=== PATIENT | male | born 1945 | race Caucasian/White ===

== ENCOUNTER 2017-04-20 13:50 | Inpatient (IN) ==
[2017-04-20] MEDS ORDERED: KETOROLAC 30 MG/1 ML VIAL IV STA (14:20)
[2017-04-20] MEDS ORDERED: KETOROLAC 30 MG/1 ML VIAL ONE (14:32)
--- NOTE | 2017-04-20 14:34 | Emergency Department Note ---
Conor Ahmadi Manpreet, am scribing for, and in the presence of, Nick Mann MD 14: 22. Mackenzie Ahmadi James D, MD, personally performed the services described in this documentation, ascribed by Aries Perdomo in my presence, and it is both accurate and complete 433 . Arrival - Arrival Chief Complaint: Shortness of Breath Stated Complaint: sob, painful in chest ED Nursing Triage Note: pt to triage via wc with c/o having sob with painful inspirations. pt states onset tuesday. pt states he has had a cough. pt states hurts worse with movement. Mode of Arrival: Wheelchair Limitations: No Limitations Source: Patient - History of Present Illness HPI Narrative: Pt is a 71 y/o male who presents to the ED with CC of left sided CP and SOB. Pt states the CP started 04/18/17 and the SOB started on 04/19/17. Pt states he has been coughing a little but his CP worsens with the cough. Pt reports of smoking 1 pack of cigarettes a week and drinking 1 6-pack of beer per week. Pt denies any fever, chills, or N/V/D. No other pains/complaints reported to the ED. Onset (ago): day(s) (04/18/17) Consistency: constant Severity: moderate Allergies/Adverse Reactions: Allergies Allergy/AdvReac Type Severity Reaction Status Date / Time No Known Allergies Allergy Unverified 04/20/17 14:02 Home Medications: Home Medications Medication Instructions Recorded Confirmed Type Melatonin 3 mg PO BEDTIME 04/20/17 04/20/17 History Mirtazapine [Remeron] 7.5 mg PO BEDTIME 04/20/17 04/20/17 History Omeprazole 40 mg PO BEDTIME 04/20/17 04/20/17 History Sertraline [Zoloft] 100 mg PO BEDTIME 04/20/17 04/20/17 History amLODIPine [Norvasc] 10 mg PO BEDTIME 04/20/17 04/20/17 History Review of System - Review of System 12 point system: reviewed and no additional remarkable complaints except as stated - Review of System Constitutional: Absent: chills, diaphoresis, fever Respiratory: Present: respiratory distress. Absent: wheezing Cardiovascular: Present: chest pain Gastrointestinal: Absent: abdominal pain, nausea, vomiting, diarrhea Genitourinary male: Absent: dysuria Musculoskeletal: Absent: back pain, leg pain, neck pain Neurological: Absent: headache, weakness, numbness, paresthesias Medical,Surgical,& Family Hx - Social History Smoking Status: Current every day smoker Frequency of Alcohol Use: Rarely Type of Drug Use: None Exam Vital Signs: Vital Signs Temperature 99.4 F 04/20/17 14:30 Pulse Rate 92 H 04/20/17 16:00 Respiratory Rate 16 04/20/17 16:00 Blood Pressure 119/51 04/20/17 16:00 O2 Sat by Pulse Oximetry 95 04/20/17 16:00 GENERAL: This is a well-nourished well-developed chronically ill-appearing white male in no apparent distress. VITAL SIGNS: Reviewed HEENT: Head is atraumatic and normocephalic. Pupils are equal round react to light. Extraocular movements are intact. Oropharynx is benign with moist mucous membranes. NECK: Neck is soft and supple without tenderness. There are no masses. There is no lymphadenopathy. LUNGS: Lungs are clear to auscultation. Chest rises symmetrically. There is no chest wall tenderness. CV: Heart is regular rate and rhythm without murmurs rubs or gallops. ABDOMEN: Abdomen is soft, nontender to palpation. There are no abdominal abnormal masses palpated. There is no organomegaly. Bowel sounds are present and active. SKIN: Skin is warm and dry. No rash. EXTREMITIES: Patient has full range of motion without tenderness. There is no pedal edema. NEUROLOGIC: Awake alert and oriented 4. Cranial nerves II through XII are grossly intact. Motor is 5 over 5 in all extremities bilaterally. Course Course Narrative: Patient was given IV Levaquin while in the emergency department. This was given after blood cultures were performed. - Consultations Consultation #1: Discussed with hospitalist. Patient will be admitted to their service. Time: 16:51 Results - Labs CBC & BMP: 04/20/17 14:45 04/20/17 14:45 Lab Results: I have reviewed the patients labs Labs: Laboratory Tests 04/20/17 14:45 WBC 14.1 H RBC 4.56 Hgb 15.3 Hct 43.2 MCV 94.7 Plt Count 202 Neut % (Auto) 80.1 H Lymph % (Auto) 6.0 L Brewster % (Auto) 12.8 H Neut # (Auto) 11.3 H Lymph # (Auto) 0.9 L Brewster # (Auto) 1.8 H Laboratory Tests 04/20/17 14:45 Sodium 132 L Potassium 3.4 L Chloride 99 Carbon Dioxide 25 Anion Gap 11.4 BUN 34 H Creatinine 1.80 H Glucose 122 H Calculated Osmolality 272.5 L Total Bilirubin 1.10 H Total Protein 9.5 H Albumin 2.9 L Globulin 6.6 H Albumin/Globulin Ratio 0.4 L Laboratory Tests 04/20/17 04/20/17 14:45 15:20 ABG pH 7.477 H ABG pCO2 27.2 L ABG pO2 61.7 L ABG HCO3 22.7 ABG Total CO2 17.1 L ABG O2 Saturation 91.7 L ABG Base Excess -1.9 B-Natriuretic Peptide 19 Laboratory Tests 04/20/17 04/20/17 16:00 16:00 Urine pH 5.0 Ur Specific Seymour 1.021 Urine Protein 100 Urine Glucose (UA) Negative Urine Ketones Negative Urine Blood Small Urine Nitrate Negative Urine Bilirubin Negative Urine Urobilinogen < 2.0 H Urine Leukocytes Negative Urine RBC 3 Urine WBC <1 Urine Opiates Screen Positive H Ur Barbiturates Screen Negative Ur Phencyclidine Scrn Negative U Amphetamine/Methamph Negative U Benzodiazepines Scrn Positive H U Cocaine Metab Screen Negative U Cannabinoids Screen Positive H - EKG EKG results: interpreted by ERMD - Impressions EKG: Sinus tachycardia with a rate of 108, left axis deviation, nonspecific ST- T wave changes. - Diagnostic Findings Procedure: Chest x-ray: image reviewed by me, report reviewed by me ("Chest X- ray: Development of encapsulating nodular pleural thickening, correlate with postcontrast CT to further characterize."), CT - chest: report reviewed by me, image reviewed by me ("CT Chest w/ IV con: 1. Right basilar consolidation, likely infectious in etiology. 2. Lobular, loculated right pleural effusion correlating with abnormal mass density on chest radiograph. 3. Left Nephrolithiassis.") Disposition Clinical Impression: Right-sided chest pain, Right lower lobe pneumonia Case discussed with: patient, patient's family Condition: Stable
[2017-04-20 14:55] LABS: Basophils % 0.1 % (0.0-0.8); Eosinophils # 0.1 10*3/uL (0.0-0.87); Eosinophils % 0.4 % (0.00-10.9); Hematocrit 43.2 VOL% (42.0-52.0); Hemoglobin 15.3 GM/DL (14.0-18.0); Immature Granulocytes % 0.6 %; Immature Granulocytes Absolute 0.09 #; Lymphocytes # 0.9 10*3/uL (1.4-4.0); Mean Corpuscular HGB Conc 35.4 GM/DL (32-36); Mean Corpuscular Hemoglobin 34 PG (27-34); Mean Corpuscular Volume 94.7 FL (87-102); Mean Platelet Volume 10.8 FL (9.6-12.0); Monocytes # 1.8 10*3/uL (0.11-0.8); Monocytes % 12.8 % (1.7-12.7); Neutrophils # 11.3 10*3/uL (1.4-7.4); Neutrophils % 80.1 % (38.7-73.9); Platelet Count 202 T/CUMM (130-400); Red Blood Count 4.56 MC/CUMM (3.8-5.5); Red Cell Distribution Width 12.6 % (9.3-17.3); White Blood Count 14.1 T/CUMM (4-12)
[2017-04-20 15:07] LABS: INR 1.2; PT Patient Result 12.4 SECS; Partial Thromboplastin Time 35.8 SECS (0-40)
--- NOTE | 2017-04-20 15:22 | XRay Report ---
2 view chest 04/20/2017 302 PM Indication: Shortness of breath Comparison: September 07, 2010 Findings: Cardiomediastinal contours are normal. Development of encapsulating nodular pleural thickening on the right with volume loss within the lung base. Thickening. No acute osseous abnormalities. Visualized upper abdomen demonstrates no acute pathology. Impression: Development of encapsulating nodular pleural thickening, correlate with postcontrast CT to further characterize PROCEDURE INTERPRETED AT [facility] DEPARTMENT OF RADIOLOGY Final Report Signed by: Jace Beach MD
[2017-04-20 15:24] LABS: Alanine Aminotransferase 30 U/L (16-61); Albumin 2.9 G/DL (3.4-5.0); Alkaline Phosphatase 96 U/L (45-117); Aspartate Amino Transferase 24 U/L (0-37); Blood Urea Nitrogen 34 MG/DL (7-18); Calcium 9.5 MG/DL (8.5-10.1); Glucose 122 MG/DL (74-106); Osmolality,Calculated 272.5 MOS/KG (273-304); Potassium 3.4 MMOL/L (3.5-5.1); Sodium 132 MMOL/L (136-145); Total Protein 9.5 G/DL (6.4-8.3); Troponin I Only < 0.015 NG/ML (0.00-0.045)
[2017-04-20 15:37] LABS: ABG Base Excess -1.9 MMOL/L (-2.5-2.5); ABG HCO3 22.7 MMOL/L (20-26); ABG Oxygen Saturation 91.7 % (95-100); ABG PCO2 27.2 MM HG (35-48); ABG PH 7.477 (7.35-7.45); ABG PO2 61.7 MM HG (80-95); ABG TCO2 17.1 MMOL/L (23-27)
[2017-04-20] MEDS ORDERED: LEVOFLOXACIN INJ 500 MG in PREMIX 1 EACH IV STA (16:17)
[2017-04-20 16:24] LABS: Apearance,Urine CLOUDY (Clear); Bacteria,Urine Occasional /HPF (Few); Bilirubin,Urine Negative (Negative); Blood, Urine Small mg/dL (Negative); Glucose,Urine (UA) Negative (Negative); Ketones,Urine Negative (Negative); Mucus,Urine Moderate /LPF (Occasional); Nitrite,Urine Negative (Negative); Protein,Urine 100 MG/DL; RBC,Urine 3 /HPF (0-4); Squamous Epithelial Cell,Urine Occasional /HPF (0-10); Urine Color Amber (Yellow); Urine Specific Gravity 1.021 (1.001-1.035); Urine Urobilinogen < 2.0 EU/DL (0.2-1.0); WBC,Urine <1 /HPF (0-6)
[2017-04-20 16:40] LABS: Barbiturates Screen,Urine Negative (Negative); Benzodiazepines Screen,Urine Positive (Negative); Cannabinoid Screen,Urine Positive (Negative); Opiate Screen,Urine Positive (Negative); Phencyclidine Screen,Urine Negative (Negative)
--- NOTE | 2017-04-20 16:44 | CT Report ---
Exam: CT chest with intravenous contrast Exam date: 04/20/2017 4:17 PM Clinical History: 71 years,Male, right-sided mass. Abnormal chest x-ray Technique: Axial computed tomography images of the chest with intravenous contrast. The CT exam was performed using one or more of the following dose reduction techniques: Automated exposure control, adjustment of the mA and/or kV according to patient size, or use of iterative reconstruction technique. Contrast: 100 mL of Omnipaque 350 administered intravenously. Comparison: Chest x-ray performed on same date at 300 hours Findings: Lungs: Right lower lobe consolidation with rounded atelectasis. Biapical fibrosis, right greater than left Pleural spaces: Loculated, lobular pleural effusion contouring the lower lobe. Heart: No cardiomegaly. No pericardial effusion Mediastinum: Intact. Normal trachea Bones/joints: Intact. No acute fracture. No dislocation. Soft tissues: Unremarkable Vasculature: Intact Upper abdomen: Nonobstructing left calyceal stone is noted. Impression: 1. Right basilar consolidation, likely infectious in etiology 2. Lobular, loculated right pleural effusion correlating with abnormal mass density on chest radiograph 3. Left nephrolithiasis PROCEDURE INTERPRETED AT [facility] DEPARTMENT OF RADIOLOGY Final Report Signed by: Jace Beach MD
[2017-04-20] MEDS ORDERED: LEVOFLOXACIN INJ 100 ML IV ONE (16:46)
[2017-04-20] MEDS ORDERED: methylPREDNISolone SOD SUC 125 MG/2 ML VIAL IV STA (16:54)
--- NOTE | 2017-04-20 17:46 | Hospitalist History & Physical ---
Assessment and Plan - Time spent with patient Time spent with patient: Greater than 30 minutes Time spent discussing smoking cessation with patient: more than 10 minutes (1) Right lower lobe pneumonia Status: Acute Assessment and plan: Chest x-ray and CT show right lower lobe consolidation. WBC 14.1. Blood cultures have been ordered and the patient has been started on empiric antibiotics as well as IV steroids. Current Visit: Yes (2) Right-sided chest pain Status: Acute Assessment and plan: Secondary to above. Nonreproducible to palpation. Pain on inspiration and with cough. Current Visit: Yes (3) Hypertension Status: Acute Assessment and plan: Continue to monitor BP. Continue home medications Current Visit: Yes (4) Tobacco abuse Status: Acute Assessment and plan: Patient admits to smoking 1 pack of cigarettes per week. Patient has been counseled extensively on smoking cessation. He reports that he has quit once before and he now voices a desire to quit again. He has agreed to wear a nicotine patch throughout his hospitalization. Current Visit: Yes History of Present Illness Chief complaint: CP, SOB History of present illness: Mr. Escalona is a 71 year old white male with past medical history significant for hypertension and tobacco abuse who presents to the ED today with complaints of chest pain and shortness of breath having onset 2 days ago. Patient reports he is a who normally sees doctors at the [facility]. He tells me that he has become increasingly short of breath with associated right-sided chest pain. He does not his chest pain is worse on inspiration and with cough. He denies any sputum production, hematemesis, headache, abdominal pain, nausea or vomiting , BLE edema. Chest x-ray and CT are positive for right lower lobe consolidation. Lab work reveals WBC of 14.1, sodium 132, potassium 3.4, BUN 34 , creatinine 1.80, serum glucose 122. Patient denies a history of diabetes mellitus, however his stepdaughter who is at bedside reports that he receives poor nutrition and is likely dehydrated. Patient admits to smoking 1 pack of cigarettes per week and drinks approximately one sixpack of beer a day. This case has been discussed with both Dr. Mann, ER physician, and Dr. Oneill, admitting physician, the patient will be admitted to the hospital medicine service for further evaluation and treatment. Patient is a full code and makes his own medical decisions. Home medications will be reviewed and reconciled once confirmed. Home Medications Medication Instructions Recorded Confirmed Type Melatonin 3 mg PO BEDTIME 04/20/17 04/20/17 History Mirtazapine [Remeron] 7.5 mg PO BEDTIME 04/20/17 04/20/17 History Omeprazole 40 mg PO BEDTIME 04/20/17 04/20/17 History Sertraline [Zoloft] 100 mg PO BEDTIME 04/20/17 04/20/17 History amLODIPine [Norvasc] 10 mg PO BEDTIME 04/20/17 04/20/17 History Allergies Allergy/AdvReac Type Severity Reaction Status Date / Time No Known Allergies Allergy Unverified 04/20/17 14:02 Medical,Surgical,& Family Hx - Family History Family History: Reports;: Family Hypertension - Social History Smoking Status: Current every day smoker Frequency of Alcohol Use: Rarely Type of Drug Use: None Marital Status: Single Lives With:: Alone Functional capacity: independent ambulation 12 point system: reviewed and no additional remarkable complaints except as stated Exam - Constitutional Vitals: Period Temp Pulse Resp BP Sys/Fuchs Pulse Ox Last 24 Hr 99.4 F-99.4 F 86-112 16-21 102-128/51-87 93-95 Exam: General appearance: normal weight, no acute distress - Head Head exam: Present: normocephalic, atraumatic - Eye Eye exam: Present: EOMI. Absent: conjunctival injection, nystagmus Pupils: Present: JAY, normal accommodation - ENT ENT exam: Present: normal exam, normal external ear exam - Neck Neck exam: Present: normal inspection. Absent: lymphadenopathy, tenderness, thyromegaly - Respiratory Respiratory exam: Present: decreased breath sounds bilaterally. Absent: rales, rhonchi, wheezes - Cardiovascular Cardiovascular exam: Present: regular rate and rhythm. Absent: carotid bruit, gallop, rubs - GI/Abdominal GI/Abdominal exam: Present: normal bowel sounds. Absent: ascites, distended, mass - Extremities Exam Extremities exam: Present: normal inspection, normal capillary refill. Absent: edema - Back Exam Back exam: Absent: CVA tenderness (L), CVA tenderness (R) - Neurological Exam Neurological exam: Present: alert, oriented X3, CN II-XII intact, reflexes normal - Psychiatric Psychiatric exam: Present: normal affect, normal mood - Skin Skin exam: Present: normal color, warm, dry Results - Labs CBC & BMP: 04/20/17 14:45 04/20/17 14:45 Lab Results: I have reviewed the past 24 hour labs - EKG EKG results: interpreted by EVY, sinus rhythm EKG shows: tachycardia - Diagnostic Findings Procedure: Chest x-ray: image reviewed by me, report reviewed by me, CT - chest : image reviewed by me, report reviewed by me (Right lower lobe consolidation)
[2017-04-20] MEDS ORDERED: ONDANSETRON 4 MG/2 ML VIAL IV PRN (17:55)
[2017-04-20] MEDS ORDERED: ACETAMINOPHEN 325 MG TABLET PO PRN (17:55)
[2017-04-20] MEDS ORDERED: MORPHINE 2 MG/1 ML SYRINGE IV PRN (17:55)
[2017-04-20] MEDS ORDERED: methylPREDNISolone SOD SUC 125 MG/2 ML VIAL ONE (18:28)
[2017-04-20] MEDS ORDERED: NICOTINE 21 MG/24 HR PATCH TRANSDERM PRN (18:45)
[2017-04-20] MEDS ORDERED: LEVOFLOXACIN INJ 750 MG in PREMIX 1 EACH IV SCH (19:00)
[2017-04-20] MEDS: SODIUM CHLORIDE 0.9% 1,000 ML IV SCH (21:00)
[2017-04-20] MEDS: MELATONIN 3 MG TABLET PO SCH (21:02)
[2017-04-20] MEDS: SERTRALINE 100 MG TABLET PO SCH (21:02)
[2017-04-20] MEDS: amLODIPine 10 MG TABLET PO SCH (21:02)
[2017-04-20] MEDS: MIRTAZAPINE 15 MG TABLET PO SCH (21:02)
[2017-04-21] MEDS: SODIUM CHLORIDE 0.9% 1,000 ML IV SCH ×3 (05:05→20:36)
[2017-04-21 06:10] LABS: Basophils % 0.1 % (0.0-0.8); Hematocrit 32.7 VOL% (42.0-52.0); Immature Granulocytes % 0.8 %; Immature Granulocytes Absolute 0.08 #; Lymphocytes # 0.5 10*3/uL (1.4-4.0); Lymphocytes % 5.3 % (21.2-54.2); Mean Corpuscular HGB Conc 36.1 GM/DL (32-36); Mean Corpuscular Hemoglobin 35 PG (27-34); Mean Corpuscular Volume 95.6 FL (87-102); Mean Platelet Volume 11.4 FL (9.6-12.0); Monocytes # 0.5 10*3/uL (0.11-0.8); Monocytes % 5.4 % (1.7-12.7); Neutrophils # 8.8 10*3/uL (1.4-7.4); Neutrophils % 88.4 % (38.7-73.9); Red Cell Distribution Width 12.6 % (9.3-17.3)
[2017-04-21 06:13] LABS: Hemoglobin 11.8 GM/DL (14.0-18.0); Platelet Count 144 T/CUMM (130-400); Red Blood Count 3.42 MC/CUMM (3.8-5.5)
[2017-04-21 06:27] LABS: Potassium 3.1 MMOL/L (3.5-5.1)
--- NOTE | 2017-04-21 06:44 | Physician Query Form ---
CLICK EDIT DOCUMENT TO SELECT QUERY ANSWER --> OK --> SIGN Lili Todd RN, CCDS Certified Clinical Facer Operator W) [phone] (f) [phone] [email or web address] PROVIDERS: Make your selection(s) from the choices in EACH section by typing an "x" and enter comments in the comment section. Please use your independent medical judgment in providing your response. This request does not imply that any particular answer is desired or expected. CLINICAL INDICATORS: (Providers should not edit this section) The medical record indicates that the patient was admitted with pneumonia, "radhadaann marie who is at bedside reports that he receives poor nutrition and is likely dehydrated", Creatinine of 1.80# on the that has dropped to 1.40 on the and the patient was given NS. GFR of 40 on the that has increased to 54 on the 28th: Clarify which of the following most accurately represents the patient's renal status: ( x) Acute kidney injury (non-traumatic) ( ) Acute renal failure ( ) Acute renal failure with underlying Chronic Kidney Disease (CKD) - please provide stage below ( ) Acute renal failure with pathological renal lesion ( ) Acute renal failure with necrosis ( ) tubular ( ) medullary ( ) cortical ( ) CKD - please provide stage below ( ) End Stage Renal Disease ( ) Acute interstitial nephritis ( ) Hepatorenal syndrome ( ) Other, please specify: ( ) Clinically unable to determine Chronic Kidney Disease Stages Source: National Kidney Disease Foundation ( ) Stage I (eGFR > or = 90) ( ) Stage II (eGFR 60 - 89) ( ) Stage III (eGFR 30 - 59) ( ) Stage IV (eGFR 15 - 29) ( ) Stage V (eGFR < 15 or dialysis) COMMENTS: PLEASE ALSO DOCUMENT RESPONSE IN PROGRESS NOTES AND/OR DISCHARGE SUMMARY Use of terms such as suspected, likely, or probable (associated with a specific diagnosis that is being evaluated, monitored, or treated as if it exists) are acceptable and can be restated in the discharge summary if not ruled out. MTDD
[2017-04-21] MEDS: PANTOPRAZOLE 40 MG TABLET PO SCH (08:45)
--- NOTE | 2017-04-21 09:36 | Pulmonology Consult Note ---
Assessment and Plan (1) COPD (chronic obstructive pulmonary disease) Status: Acute Assessment and plan: The patient likely has significant COPD but does not take treatment. Will continue with bronchodilator therapy. Current Visit: Yes (2) Pleurisy with effusion Status: Acute Assessment and plan: The patient has pleurisy with a small effusion and will have to watch for worsening effusion. Current Visit: Yes (3) Right lower lobe pneumonia Status: Acute Assessment and plan: Patient comes in with a right lower lobe pneumonia and will continue with treatment. Current Visit: Yes (4) Hypertension Status: Acute Assessment and plan: His blood pressure and heart rate are stable. Current Visit: Yes (5) Tobacco abuse Status: Acute Assessment and plan: He says is going to try to quit smoking. Current Visit: Yes History of Present Illness Chief complaint: Pneumonia History of present illness: Mr. Escalona is a 71 year old white male that is a lifelong smoker and is followed at the [facility]. He has a history of hypertension. He says he has never really been treated for COPD. He comes in with 3 or 4 days of right-sided pleurisy and coughing with some mild shortness of breath. He is not sure if he has ever had any fever or chills. He is not coughing up any blood. He mainly has the chest discomfort and mild shortness of breath. He says he is followed at the [facility] for his high blood pressure. He also takes some nerve pills. He has never had any angina or heart disease. He does drink alcohol regularly and smokes a pack per day. Home Medications Medication Instructions Recorded Confirmed Type Melatonin 3 mg PO BEDTIME 04/20/17 04/20/17 History Mirtazapine [Remeron] 7.5 mg PO BEDTIME 04/20/17 04/20/17 History Omeprazole 40 mg PO BEDTIME 04/20/17 04/20/17 History Sertraline [Zoloft] 100 mg PO BEDTIME 04/20/17 04/20/17 History amLODIPine [Norvasc] 10 mg PO BEDTIME 04/20/17 04/20/17 History Allergies Allergy/AdvReac Type Severity Reaction Status Date / Time No Known Allergies Allergy Unverified 04/20/17 14:02 - Constitutional Constitutional: Present: fatigue. Absent: chills, fever(s), weight loss - EENT Eyes: Absent: loss of vision Ears: Present: decreased hearing Nose, mouth and throat: Absent: dysphagia, headache(s), sinus pressure - Cardiovascular Cardiovascular: Present: chest pain at rest, dyspnea. Absent: edema, orthopnea , palpitations - Respiratory Respiratory: Present: cough, dyspnea, pain on inspiration, change in phlegm color. Absent: hemoptysis - Gastrointestinal Gastrointestinal: Absent: abdominal pain, change in bowel habits, dysphagia, heartburn, nausea, vomiting - Genitourinary Genitourinary: Absent: difficulty urinating, dysuria, hematuria - Musculoskeletal Musculoskeletal: Absent: arthralgias, myalgias - Neurological Neurological: Absent: abnormal speech, focal weakness, paresthesias - Psychiatric Psychiatric: Absent: anxiety Exam (Pulmonay) H&P - Constitutional Vitals: Period Temp Pulse Resp BP Sys/Fuchs Pulse Ox Last 24 Hr 96.1 F-99.4 F 58-112 16-21 102-128/51-87 93-95 General appearance: normal weight, no acute distress, other (He looks comfortable sitting up in bed.) - Head Head exam: Present: normal inspection, normocephalic - Eye Eye exam: Present: EOMI. Absent: scleral icterus Pupils: Present: JAY - ENT ENT exam: Present: normal exam - Neck Neck exam: Present: normal inspection. Absent: lymphadenopathy, thyromegaly - Respiratory Respiratory exam: Present: decreased breath sounds, prolonged expiratory phase, rales (He does have some crackles in the right base), wheezes - Cardiovascular Cardiovascular exam: Present: regular rate and rhythm. Absent: gallop, systolic murmur - GI/Abdominal GI/Abdominal exam: Present: normal bowel sounds, soft. Absent: distended, organomegaly, tenderness - Extremities Exam Extremities exam: Absent: calf tenderness, edema - Neurological Exam Neurological exam: Present: alert, oriented X3, CN II-XII intact. Absent: motor sensory deficit - Psychiatric Psychiatric exam: Present: normal affect - Skin Skin exam: Present: warm, dry Medical,Surgical,& Family Hx - Medical History Cardio: History of: Hypertension HEENT: History of: Eye Problem (glasses) Respiratory: History of: COPD Renal: History of: Renal Problems (urinary retention) Gastrointestinal: History of: GERD - Family History Family History: Reports;: Family Hypertension - Social History Smoking Status: Current every day smoker Frequency of Alcohol Use: Rarely Type of Drug Use: None Results - Labs CBC & BMP: 04/21/17 05:21 04/21/17 05:21 - Diagnostic Findings Procedure: Chest x-ray: image reviewed by me, report reviewed by me (Chest x- ray does show peripheral right lower lobe infiltrate with pleural involvement.) , CT - chest: image reviewed by me, report reviewed by me (CT shows right lower lobe infiltrate with some loculated pleural fluid.)
[2017-04-21] MEDS: methylPREDNISolone SOD SUC 40 MG/1 ML VIAL IV SCH ×2 (11:20→18:55)
--- NOTE | 2017-04-21 12:10 | Hospitalist Progress Note ---
Assessment and Plan (1) Right-sided chest pain Status: Acute Assessment and plan: Secondary to pneumonia Current Visit: Yes (2) Right lower lobe pneumonia Status: Acute Assessment and plan: Continue levaquin and rocephin Pulmonary assisting Current Visit: Yes (3) Hypertension Status: Acute Assessment and plan: Continue amlodipine Current Visit: Yes (4) COPD (chronic obstructive pulmonary disease) Status: Acute Assessment and plan: Pulmonary assisting Continue abx Started on steroids Current Visit: Yes (5) Positive blood culture Status: Acute Assessment and plan: Growing gram positive cocci Add vancomycin until pcr returns F/u speciation and repeat blood cultures Current Visit: Yes (6) EDWARD (acute kidney injury) Status: Acute Assessment and plan: Creatinine was 1.8 on admission Possibly secondary to dehydration Improving with IV fluids Current Visit: Yes Hospitalist: Subjective Interval history: No acute events overnight. Patient feels better today. Still reports some pleuritic pain with deep inspiration and coughing. Exam - Constitutional Vitals: Period Temp Pulse Resp BP Sys/Fuchs Pulse Ox Last 24 Hr 96.1 F-99.4 F 58-112 16-21 102-135/51-87 87-95 General appearance: normal weight - Head Head exam: Present: normocephalic, atraumatic - Eye Eye exam: Present: EOMI Pupils: Present: JAY - ENT ENT exam: Present: normal exam - Neck Neck exam: Present: normal inspection - Respiratory Respiratory exam: Present: clear to auscultation bilaterally. Absent: rhonchi, wheezes - Cardiovascular Cardiovascular exam: Present: regular rate and rhythm - GI/Abdominal GI/Abdominal exam: Present: normal bowel sounds, soft. Absent: tenderness, rebound - Extremities Exam Extremities exam: Present: normal inspection - Back Exam Back exam: Present: normal inspection - Neurological Exam Neurological exam: Present: alert, oriented X3 - Psychiatric Psychiatric exam: Present: normal affect, normal mood - Skin Skin exam: Present: warm, intact Results - Labs CBC & BMP: 04/21/17 05:21 04/21/17 05:21
[2017-04-21] MEDS: TAMSULOSIN 0.4 MG CAPSULE PO SCH (12:56)
[2017-04-21] MEDS ORDERED: VANCOMYCIN INJ 1,000 MG in SODIUM CHLORIDE 0.9% 250 ML IV SCH (13:00)
[2017-04-21] MEDS: VANCOMYCIN INJ 1,000 MG in SODIUM CHLORIDE 0.9% 250 ML IV SCH (13:51)
[2017-04-21] MEDS: LEVOFLOXACIN INJ 750 MG in PREMIX 1 EACH IV SCH (16:44)
[2017-04-21] MEDS: POTASSIUM CHLORIDE RIDER 10 MEQ in PREMIX 1 EACH IV PRN ×4 (19:14→23:46)
[2017-04-21] MEDS: amLODIPine 10 MG TABLET PO SCH (21:49)
[2017-04-21] MEDS: MIRTAZAPINE 15 MG TABLET PO SCH (21:49)
[2017-04-21] MEDS: SERTRALINE 100 MG TABLET PO SCH (21:49)
[2017-04-21] MEDS: MELATONIN 3 MG TABLET PO SCH (21:49)
[2017-04-22] MEDS: methylPREDNISolone SOD SUC 40 MG/1 ML VIAL IV SCH ×3 (02:55→16:34)
[2017-04-22] MEDS: SODIUM CHLORIDE 0.9% 1,000 ML IV SCH ×2 (03:00→15:31)
[2017-04-22 06:39] LABS: Basophils % 0.1 % (0.0-0.8); Hematocrit 36.2 VOL% (42.0-52.0); Hemoglobin 12.7 GM/DL (14.0-18.0); Immature Granulocytes % 0.9 %; Immature Granulocytes Absolute 0.15 #; Lymphocytes # 0.7 10*3/uL (1.4-4.0); Lymphocytes % 4.2 % (21.2-54.2); Mean Corpuscular HGB Conc 35.1 GM/DL (32-36); Mean Corpuscular Hemoglobin 34 PG (27-34); Mean Corpuscular Volume 95.8 FL (87-102); Mean Platelet Volume 11.6 FL (9.6-12.0); Monocytes % 6.2 % (1.7-12.7); Neutrophils # 14.5 10*3/uL (1.4-7.4); Neutrophils % 88.6 % (38.7-73.9); Platelet Count 186 T/CUMM (130-400); Red Blood Count 3.78 MC/CUMM (3.8-5.5); Red Cell Distribution Width 12.7 % (9.3-17.3); White Blood Count 16.3 T/CUMM (4-12)
[2017-04-22 07:02] LABS: Band Neutrophils 1 % (0-10); Hypochromasia Slight; Lymphocytes 7 % (20-55); Ovalocytes Slight; Platelet Estimate Normal; Segmented Neutrophils 90 % (50-85); Total Cells Counted 100
[2017-04-22 07:03] LABS: Giant Platelets Few
[2017-04-22 07:11] LABS: Calcium 7.9 MG/DL (8.5-10.1)
--- NOTE | 2017-04-22 07:45 | XRay Report ---
Portable chest Date: 04/22/2017 Clinical history: Shortness of breath Comparison: 04/20/2017 Technique: Portable AP sitting chest Findings: The heart remains normal in size. Very minimal reduction in the pleural and parenchymal findings in the right mid to lower lung zone. Calcified granulomata/nodes with degenerative changes. Impression: Very minimally reduced atelectasis/infiltration in the right lower lobe with very minimally smaller loculated appearing right pleural effusion. Continued follow-up is recommended to document clearing and exclude additional underlying pathology. PROCEDURE INTERPRETED AT [facility] DEPARTMENT OF RADIOLOGY Final Report Signed by: Dr. Tammy Deshpande
--- NOTE | 2017-04-22 08:30 | Pulmonology Progress Note ---
Pulmonary - PN: Subj Interval history: The patient is a 71-year-old white man that has a long history of cigarette smoking. He came in right-sided pleurisy and coughing little bit of shortness of breath. He has a right lower lobe pneumonia with some pleural involvement. He has positive blood cultures now. He says he is feeling much better and not having any pleurisy. He feels like his breathing is better. He seems to be tolerating everything okay. He will need to continue with IV antibiotics. His chest x-ray may be a little better but still has a small area of loculated effusion. Exam (Progress Note) - Constitutional Vitals: Period Temp Pulse Resp BP Sys/Fuchs Pulse Ox Last 24 Hr 96.3 F-97.8 F 65-93 16-22 103-135/61-70 87-96 Exam: General appearance: normal weight, no acute distress, other (He looks comfortable sitting up in bed. He is eating and in no distress.) - Head Head exam: Present: normal inspection, normocephalic - Eye Eye exam: Present: EOMI. Absent: scleral icterus Pupils: Present: JAY - ENT ENT exam: Present: normal exam - Neck Neck exam: Present: normal inspection. Absent: lymphadenopathy, thyromegaly - Respiratory Respiratory exam: Present: He has fair breath sounds bilaterally with less wheezing. - Cardiovascular Cardiovascular exam: Present: regular rate and rhythm. Absent: gallop, systolic murmur - GI/Abdominal GI/Abdominal exam: Present: normal bowel sounds, soft. Absent: distended, organomegaly, tenderness - Extremities Exam Extremities exam: Absent: calf tenderness, edema - Neurological Exam Neurological exam: Present: alert, oriented X3, CN II-XII intact. Absent: motor sensory deficit - Psychiatric Psychiatric exam: Present: normal affect - Skin Skin exam: Present: warm, dry Results - Labs CBC & BMP: 04/22/17 05:26 04/22/17 05:26 - Diagnostic Findings Procedure: Chest x-ray: image reviewed by me, report reviewed by me (Chest x- ray may be slightly better. Still has a consolidated area in his right lower lobe.) Assessment and Plan (1) COPD (chronic obstructive pulmonary disease) Status: Acute Assessment and plan: The patient likely has significant COPD but does not take treatment. Will continue with bronchodilator therapy. He is better on steroids and antibiotics. Current Visit: Yes (2) Pleurisy with effusion Status: Acute Assessment and plan: The patient has pleurisy with a small effusion. His chest x-ray is stable so far Current Visit: Yes (3) Right lower lobe pneumonia Status: Acute Assessment and plan: Patient comes in with a right lower lobe pneumonia and will continue with treatment. He does have staph on blood cultures. He is on vancomycin now. Current Visit: Yes (4) Hypertension Status: Acute Assessment and plan: His blood pressure and heart rate are stable. Current Visit: Yes (5) Tobacco abuse Status: Acute Assessment and plan: He says is going to try to quit smoking. He is getting a nicotine patch. Current Visit: Yes
[2017-04-22] MEDS: TAMSULOSIN 0.4 MG CAPSULE PO SCH (08:34)
[2017-04-22] MEDS: PANTOPRAZOLE 40 MG TABLET PO SCH (08:34)
[2017-04-22] MEDS: VANCOMYCIN INJ 1,000 MG in SODIUM CHLORIDE 0.9% 250 ML IV SCH (08:35)
[2017-04-22] MEDS: LEVOFLOXACIN INJ 750 MG in PREMIX 1 EACH IV SCH (16:34)
--- NOTE | 2017-04-22 16:51 | Hospitalist Progress Note ---
Assessment and Plan (1) Right-sided chest pain Status: Acute Assessment and plan: Secondary to pneumonia Current Visit: Yes (2) Right lower lobe pneumonia Status: Acute Assessment and plan: Continue levaquin Pulmonary assisting Current Visit: Yes (3) Hypertension Status: Acute Assessment and plan: Continue amlodipine Current Visit: Yes (4) COPD (chronic obstructive pulmonary disease) Status: Acute Assessment and plan: Pulmonary assisting Continue abx Started on steroids Current Visit: Yes (5) Positive blood culture Status: Acute Assessment and plan: Growing gram positive cocci Add vancomycin until pcr returns F/u speciation and repeat blood cultures Current Visit: Yes (6) EDWARD (acute kidney injury) Status: Acute Assessment and plan: Creatinine was 1.8 on admission Possibly secondary to dehydration Improving with IV fluids Current Visit: Yes Hospitalist: Subjective Interval history: No acute events overnight. Patient is very eager for discharge. Reports that he feels better. Exam - Constitutional Vitals: Period Temp Pulse Resp BP Sys/Fuchs Pulse Ox Last 24 Hr 96.3 F-98.2 F 65-93 20-22 103-127/61-76 93-96 General appearance: normal weight - Head Head exam: Present: normocephalic, atraumatic - Eye Eye exam: Present: EOMI Pupils: Present: JAY - ENT ENT exam: Present: normal exam - Neck Neck exam: Present: normal inspection - Respiratory Respiratory exam: Present: clear to auscultation bilaterally. Absent: rhonchi, wheezes - Cardiovascular Cardiovascular exam: Present: regular rate and rhythm - GI/Abdominal GI/Abdominal exam: Present: normal bowel sounds, soft. Absent: tenderness, rebound - Extremities Exam Extremities exam: Present: normal inspection - Back Exam Back exam: Present: normal inspection - Neurological Exam Neurological exam: Present: alert, oriented X3 - Psychiatric Psychiatric exam: Present: normal affect, normal mood - Skin Skin exam: Present: warm, intact Results - Labs CBC & BMP: 04/22/17 05:26 04/22/17 05:26
[2017-04-22] MEDS: MELATONIN 3 MG TABLET PO SCH (21:05)
[2017-04-22] MEDS: amLODIPine 10 MG TABLET PO SCH (21:05)
[2017-04-22] MEDS: SERTRALINE 100 MG TABLET PO SCH (21:05)
[2017-04-22] MEDS: MIRTAZAPINE 15 MG TABLET PO SCH (21:05)
[2017-04-23] MEDS: VANCOMYCIN INJ 1,000 MG in SODIUM CHLORIDE 0.9% 250 ML IV SCH ×2 (01:20→19:14)
[2017-04-23] MEDS: methylPREDNISolone SOD SUC 40 MG/1 ML VIAL IV SCH ×3 (01:32→17:22)
[2017-04-23 05:19] LABS: Basophils % 0.1 % (0.0-0.8); Hematocrit 35.7 VOL% (42.0-52.0); Hemoglobin 12.5 GM/DL (14.0-18.0); Immature Granulocytes % 1.3 %; Lymphocytes # 0.6 10*3/uL (1.4-4.0); Lymphocytes % 3.9 % (21.2-54.2); Mean Corpuscular Hemoglobin 34 PG (27-34); Mean Platelet Volume 11.3 FL (9.6-12.0); Monocytes # 0.9 10*3/uL (0.11-0.8); Neutrophils # 13.5 10*3/uL (1.4-7.4); Neutrophils % 88.7 % (38.7-73.9); Platelet Count 205 T/CUMM (130-400); Red Blood Count 3.72 MC/CUMM (3.8-5.5); Red Cell Distribution Width 13.1 % (9.3-17.3); White Blood Count 15.2 T/CUMM (4-12)
[2017-04-23 05:48] LABS: Calcium 7.7 MG/DL (8.5-10.1); Osmolality,Calculated 302.6 MOS/KG (273-304); Potassium 4.1 MMOL/L (3.5-5.1)
[2017-04-23] MEDS: PANTOPRAZOLE 40 MG TABLET PO SCH (08:19)
[2017-04-23] MEDS: TAMSULOSIN 0.4 MG CAPSULE PO SCH (08:19)
--- NOTE | 2017-04-23 10:37 | Pulmonology Progress Note ---
Pulmonary - PN: Subj Interval history: This is a 71-year-old white male. He is a longtime smoker and has COPD. He was admitted with a right lower lung pneumonia loculated pleural effusion. Effusion is not big but he has some pleurisy and Dr. Henao is concerned that he could develop an empyema. There are no positive cultures. Dr. Henao feels patient should be on antibiotics and will little while longer and I agree 100%. Today the patient wanted to be discharged. I explained to him what Dr. Henao is said and I explained to them the implications and the complications of an empyema. He again asked if he wanted to be discharged. I told him if he knew more than Dr. Henao and more than me about the empyema in 1 to be discharged I would document it and let them go. He seemed to change his mind. Microbiology. This patient has 2 blood cultures from 04/20/2017 which are growing gram-positive cocci. These have yet to be identified and there are no sensitivities available. Lab. Electrolytes are normal. Creatinine is dropped from 1.8-1.3. White count remains elevated 15,289 segs. Physical exam. Vital signs. See below. Patient has become afebrile. Face is symmetrical with no edema of the lips or tongue. Neck. Symmetrical no meningismus Chest is clear Heart no gallop Abdomen benign Extremities no clubbing no edema nothing to suggest deep venous thrombophlebitis Psychiatric oriented 3 Neurologic cranial nerves are intact. Patient's hearing seems to be acceptable. Long track motor functions intact The remainder the exam is noncontributory. Plan. 1. Continue present regimen 2. Cyst told the patient I suspect Dr. Henao plans to let him go home early next week and I have recommended that he stick to that plan. See above Exam (Progress Note) - Constitutional Vitals: Period Temp Pulse Resp BP Sys/Fuchs Pulse Ox Last 24 Hr 97.2 F-98.4 F 66-84 20-20 111-138/68-76 92-95 Results - Labs CBC & BMP: 04/23/17 04:57 04/23/17 04:57
--- NOTE | 2017-04-23 15:55 | Hospitalist Progress Note ---
Assessment and Plan (1) Right-sided chest pain Status: Acute Assessment and plan: Secondary to pneumonia Current Visit: Yes (2) Right lower lobe pneumonia Status: Acute Assessment and plan: Continue levaquin Pulmonary assisting Current Visit: Yes (3) Hypertension Status: Acute Assessment and plan: Continue amlodipine Current Visit: Yes (4) COPD (chronic obstructive pulmonary disease) Status: Acute Assessment and plan: Pulmonary assisting Continue abx Started on steroids Current Visit: Yes (5) Positive blood culture Status: Acute Assessment and plan: Growing gram positive cocci Add vancomycin until pcr returns F/u speciation and repeat blood cultures Current Visit: Yes (6) EDWARD (acute kidney injury) Status: Acute Assessment and plan: Creatinine was 1.8 on admission Possibly secondary to dehydration Improving with IV fluids Current Visit: Yes Hospitalist: Subjective Interval history: No acute events overnight. Patient reports that he feels good and is ready to go home. I discussed the concerns and plans set in place by pulmonary, he seems to understand. Exam - Constitutional Vitals: Period Temp Pulse Resp BP Sys/Fuchs Pulse Ox Last 24 Hr 97.2 F-98.4 F 66-84 18-20 111-150/68-76 90-95 General appearance: normal weight - Head Head exam: Present: normocephalic, atraumatic - Eye Eye exam: Present: EOMI Pupils: Present: JAY - ENT ENT exam: Present: normal exam - Neck Neck exam: Present: normal inspection - Respiratory Respiratory exam: Present: clear to auscultation bilaterally. Absent: rhonchi, wheezes - Cardiovascular Cardiovascular exam: Present: regular rate and rhythm - GI/Abdominal GI/Abdominal exam: Present: normal bowel sounds, soft. Absent: tenderness, rebound - Extremities Exam Extremities exam: Present: normal inspection - Back Exam Back exam: Present: normal inspection - Neurological Exam Neurological exam: Present: alert, oriented X3 - Psychiatric Psychiatric exam: Present: normal affect, normal mood - Skin Skin exam: Present: warm, intact Results - Labs CBC & BMP: 04/23/17 04:57 04/23/17 04:57
[2017-04-23] MEDS: LEVOFLOXACIN INJ 750 MG in PREMIX 1 EACH IV SCH (17:22)
[2017-04-23] MEDS: SERTRALINE 100 MG TABLET PO SCH (20:34)
[2017-04-23] MEDS: amLODIPine 10 MG TABLET PO SCH (20:34)
[2017-04-23] MEDS: MELATONIN 3 MG TABLET PO SCH (20:34)
[2017-04-23] MEDS: MIRTAZAPINE 15 MG TABLET PO SCH (20:34)
[2017-04-23] MEDS ORDERED: VANCOMYCIN INJ 1,000 MG in SODIUM CHLORIDE 0.9% 250 ML IV SCH (21:00)
[2017-04-23] MEDS ORDERED: TEMAZEPAM 15 MG CAPSULE PO ONE (21:54)
[2017-04-24] MEDS: methylPREDNISolone SOD SUC 40 MG/1 ML VIAL IV SCH ×3 (03:20→17:22)
[2017-04-24 03:36] LABS: Basophils % 0.1 % (0.0-0.8); Hematocrit 36.2 VOL% (42.0-52.0); Hemoglobin 12.7 GM/DL (14.0-18.0); Immature Granulocytes % 1.5 %; Immature Granulocytes Absolute 0.23 #; Lymphocytes % 6.8 % (21.2-54.2); Mean Corpuscular HGB Conc 35.1 GM/DL (32-36); Mean Corpuscular Hemoglobin 34 PG (27-34); Mean Corpuscular Volume 96.3 FL (87-102); Monocytes # 1.1 10*3/uL (0.11-0.8); Monocytes % 7.1 % (1.7-12.7); Neutrophils # 12.5 10*3/uL (1.4-7.4); Neutrophils % 84.5 % (38.7-73.9); Platelet Count 209 T/CUMM (130-400); Red Blood Count 3.76 MC/CUMM (3.8-5.5); Red Cell Distribution Width 13.3 % (9.3-17.3); White Blood Count 14.8 T/CUMM (4-12)
[2017-04-24 04:00] LABS: Calcium 7.9 MG/DL (8.5-10.1); Magnesium 1.8 MG/DL (1.8-2.4); Osmolality,Calculated 297.6 MOS/KG (273-304); Potassium 4.1 MMOL/L (3.5-5.1)
[2017-04-24] MEDS: VANCOMYCIN INJ 1,000 MG in SODIUM CHLORIDE 0.9% 250 ML IV SCH ×2 (08:59→19:48)
[2017-04-24] MEDS: PANTOPRAZOLE 40 MG TABLET PO SCH (09:05)
[2017-04-24] MEDS: TAMSULOSIN 0.4 MG CAPSULE PO SCH (09:05)
--- NOTE | 2017-04-24 11:21 | Pulmonology Progress Note ---
Pulmonary - PN: Subj Interval history: This is a 71-year-old white male. He is a longtime smoker and has COPD. He was admitted with a right lower lung pneumonia loculated pleural effusion. Effusion is not big but he has some pleurisy and Dr. Henao is concerned that he could develop an empyema. There are no positive cultures. Dr. Henao feels patient should be on antibiotics and will little while longer and I agree 100%. Today the patient wanted to be discharged. I explained to him what Dr. Henao is said and I explained to them the implications and the complications of an empyema. He again asked if he wanted to be discharged. I told him if he knew more than Dr. Henao and more than me about the empyema in 1 to be discharged I would document it and let them go. He seemed to change his mind. Microbiology. This patient has 2 blood cultures from 04/20/2017 which are growing gram-positive cocci. These have yet to be identified and there are no sensitivities available. Lab. Electrolytes are normal. Creatinine is dropped from 1.8-1.3. White count remains elevated 15,289 segs. 04/24/2017. Today's chest x-ray still shows a loculated pleural effusion at over the right lower lung. Blood cultures from 04/20 and 04/21/17 positive for staph epidermidis. Creatinine is dropped from 1.8-1.2 with a BUN of 33 electrolytes are normal white count is 14,800 H&H is stable 12.7/36.2. This morning the patient is comfortable has no new complaints only wants to know when he is going home. He was not argumentative today. Physical exam. Vital signs. See below. Patient has become afebrile. Face is symmetrical with no edema of the lips or tongue. Neck. Symmetrical no meningismus Chest is clear Heart no gallop Abdomen benign Extremities no clubbing no edema nothing to suggest deep venous thrombophlebitis Psychiatric oriented 3 Neurologic cranial nerves are intact. Patient's hearing seems to be acceptable. Long track motor functions intact The remainder the exam is noncontributory. Plan. 04/23/2017. 1. Continue present regimen 2. Cyst told the patient I suspect Dr. Henao plans to let him go home early next week and I have recommended that he stick to that plan. See above 04/24/2017. 1. See today's note above 2. See chest X Exam (Progress Note) - Constitutional Vitals: Period Temp Pulse Resp BP Sys/Fuchs Pulse Ox Last 24 Hr 97.1 F-98.5 F 69-112 18-24 108-150/62-92 90-97 Results - Labs CBC & BMP: 04/24/17 03:01 04/24/17 03:02
--- NOTE | 2017-04-24 12:22 | Hospitalist Progress Note ---
Assessment and Plan (1) Right-sided chest pain Status: Acute Assessment and plan: Secondary to pneumonia Current Visit: Yes (2) Right lower lobe pneumonia Status: Acute Assessment and plan: Continue levaquin With associated effusion Pulmonary assisting Current Visit: Yes (3) Hypertension Status: Acute Assessment and plan: Continue amlodipine Current Visit: Yes (4) COPD (chronic obstructive pulmonary disease) Status: Acute Assessment and plan: Pulmonary assisting Continue abx Started on steroids Current Visit: Yes (5) Positive blood culture Status: Acute Assessment and plan: Growing gram positive cocci Added vancomycin Blood cultures grew staph epidermidis, repeat negative so far Current Visit: Yes (6) EDWARD (acute kidney injury) Status: Acute Assessment and plan: Creatinine was 1.8 on admission Possibly secondary to dehydration Improving with IV fluids Current Visit: Yes Hospitalist: Subjective Interval history: No acute events overnight. Patient without complaints. He is still eager for discharge but seems to understand why needs to stay. Exam - Constitutional Vitals: Period Temp Pulse Resp BP Sys/Fuchs Pulse Ox Last 24 Hr 97.1 F-98.5 F 69-112 18-24 108-140/62-92 91-97 General appearance: normal weight - Head Head exam: Present: normocephalic, atraumatic - Eye Eye exam: Present: EOMI Pupils: Present: JAY - ENT ENT exam: Present: normal exam - Neck Neck exam: Present: normal inspection - Respiratory Respiratory exam: Present: clear to auscultation bilaterally. Absent: rhonchi, wheezes - Cardiovascular Cardiovascular exam: Present: regular rate and rhythm - GI/Abdominal GI/Abdominal exam: Present: normal bowel sounds, soft. Absent: tenderness, rebound - Extremities Exam Extremities exam: Present: normal inspection - Back Exam Back exam: Present: normal inspection - Neurological Exam Neurological exam: Present: alert, oriented X3 - Psychiatric Psychiatric exam: Present: normal affect, normal mood - Skin Skin exam: Present: warm, intact Results - Labs CBC & BMP: 04/24/17 03:01 04/24/17 03:02
[2017-04-24] MEDS: LEVOFLOXACIN INJ 750 MG in PREMIX 1 EACH IV SCH (17:23)
[2017-04-24] MEDS: MIRTAZAPINE 15 MG TABLET PO SCH (20:47)
[2017-04-24] MEDS: amLODIPine 10 MG TABLET PO SCH (20:47)
[2017-04-24] MEDS: MELATONIN 3 MG TABLET PO SCH (20:47)
[2017-04-24] MEDS: SERTRALINE 100 MG TABLET PO SCH (20:47)
[2017-04-25] MEDS: methylPREDNISolone SOD SUC 40 MG/1 ML VIAL IV SCH ×2 (00:34→08:24)
[2017-04-25] MEDS: VANCOMYCIN INJ 1,000 MG in SODIUM CHLORIDE 0.9% 250 ML IV SCH (08:24)
[2017-04-25] MEDS: TAMSULOSIN 0.4 MG CAPSULE PO SCH (08:26)
[2017-04-25] MEDS: PANTOPRAZOLE 40 MG TABLET PO SCH (08:26)
--- NOTE | 2017-04-25 08:27 | XRay Report ---
XR chest 2V Indication: Pneumonia Comparison: and March 2017 Findings: The heart and mediastinum are normal in size and configuration. The pulmonary vascularity is normal in caliber. Right lower lung density and effusion are present, similar to previous exam. No other lung infiltrates, effusions, pneumothorax or other abnormality is demonstrated. Impression: No significant changes. PROCEDURE INTERPRETED AT [facility] DEPARTMENT OF RADIOLOGY Final Report Signed by: Dr. Wu Pham
--- NOTE | 2017-04-25 10:11 | Pulmonology Progress Note ---
Pulmonary - PN: Subj Interval history: The patient is a 71-year-old white man that has a long history of cigarette smoking. He came in right-sided pleurisy and coughing little bit of shortness of breath. He has a right lower lobe pneumonia with some pleural involvement. He has positive blood cultures now. He says he is feeling much better and not having any pleurisy. He feels like his breathing is better. He said he had a good weekend and is not having any chest pain or shortness of breath now. He is not coughing much now. His chest x-ray looks stable with a few areas of loculated effusion. Overall it is improving. He did have staph epi on blood cultures. Overall he is getting better. Exam (Progress Note) - Constitutional Vitals: Period Temp Pulse Resp BP Sys/Fuchs Pulse Ox Last 24 Hr 96.4 F-97.8 F 71-95 18-22 117-179/70-90 92-99 Exam: General appearance: normal weight, no acute distress, other (He looks comfortable sitting up in bed. He is eating and in no distress.) - Head Head exam: Present: normal inspection, normocephalic - Eye Eye exam: Present: EOMI. Absent: scleral icterus Pupils: Present: JAY - ENT ENT exam: Present: normal exam - Neck Neck exam: Present: normal inspection. Absent: lymphadenopathy, thyromegaly - Respiratory Respiratory exam: Present: He has fair breath sounds bilaterally seems to be moving air okay without any rales or wheezing. - Cardiovascular Cardiovascular exam: Present: regular rate and rhythm. Absent: gallop, systolic murmur - GI/Abdominal GI/Abdominal exam: Present: normal bowel sounds, soft. Absent: distended, organomegaly, tenderness - Extremities Exam Extremities exam: Absent: calf tenderness, edema - Neurological Exam Neurological exam: Present: alert, oriented X3, CN II-XII intact. Absent: motor sensory deficit - Psychiatric Psychiatric exam: Present: normal affect - Skin Skin exam: Present: warm, dry Results - Labs CBC & BMP: 04/24/17 03:01 04/24/17 03:02 - Diagnostic Findings Procedure: Chest x-ray: image reviewed by me, report reviewed by me (Chest x- ray does show some loculated effusions on the right chest.) Assessment and Plan (1) COPD (chronic obstructive pulmonary disease) Status: Acute Assessment and plan: The patient likely has significant COPD but does not take treatment. Will continue with bronchodilator therapy. His breathing is doing much better. Current Visit: Yes (2) Pleurisy with effusion Status: Acute Assessment and plan: The patient has pleurisy with a small effusion. Clinically he is doing much better although he still does have some loculated effusion. He is not acting like empyema and he is overall doing better. He can probably go home on antibiotics and will just watch him as an outpatient. Current Visit: Yes (3) Right lower lobe pneumonia Status: Acute Assessment and plan: Patient comes in with a right lower lobe pneumonia and will continue with treatment. He does have staph on blood cultures. Clinically he is much better and can probably go on oral antibiotics. Current Visit: Yes (4) Hypertension Status: Acute Assessment and plan: His blood pressure and heart rate are stable. Current Visit: Yes (5) Tobacco abuse Status: Acute Assessment and plan: He says is going to try to quit smoking. He is getting a nicotine patch. Current Visit: Yes
--- NOTE | 2017-04-25 11:42 | Discharge Summary ---
<Suleiman Stewart - Last Filed: 04/25/17 16:15> Hospital Course - Hospital Course Hospital Course: This is a 71-year-old male that presented to the ED at [facility] on the afternoon of April 20, 2017 for the evaluation of chest pain and shortness of breath. The patient has a medical history significant for hypertension, alcohol abuse, nicotine addiction, insomnia, depression, and gastroesophageal reflux disease. The patient reported the onset of symptoms 2 days prior to presentation. He reported that he had become increasingly short of breath with right-sided chest pain. In addition, he reports that he is normally followed at the [facility] in [place] however his symptoms became severe prompting him to present to the ED here at [facility] for further evaluation. The patient was assessed at the time of ED presentation. Chest x-ray was significant for right lower lobe consolidation and probable pneumonia. Labs were obtained which were significant for white blood cell count at 14.1, sodium 132, potassium 3.4, BUN 34, creatinine 1.80, and glucose at 122. The patient was subsequently admitted to the hospitalist service for continuation of care. Empiric antibiotic coverage, inhaled bronchodilators, and intravenous corticosteroids and gentle rehydration was initiated. Pulmonary was consulted. He was monitored closely due to concern for development of empyema. The patient' s condition gradually improved. The patient's condition is stable. He has not experienced any significant overnight events. Today, we feel that he is indeed appropriate for discharge to follow-up with his primary care physician at the [facility] in [place], [place] as indicated. He will follow-up with pulmonary in 2-3 weeks. Specialty Discharge - Follow Up or Referrals Follow up with: Ronny Henao MD [Physician] - 05/09/17 11:00 am Discharge Plan - Discharge Data Disposition: Disch To Home/Self Care - Discharge Medications New predniSONE TAB [PredniSONE] 10 mg PO DAILY #21 tablet Levofloxacin Tab [Levaquin Tab] 750 mg PO DAILY #9 tablet Tamsulosin [Flomax] 0.4 mg PO DAILY #30 capsule Continue amLODIPine [Norvasc] 10 mg PO BEDTIME Sertraline [Zoloft] 100 mg PO BEDTIME Omeprazole 40 mg PO BEDTIME Mirtazapine [Remeron] 7.5 mg PO BEDTIME Melatonin 3 mg PO BEDTIME - Follow Up or Referral Follow Up: Ronny Henao MD [Physician] - 05/09/17 11:00 am - Forms/Instructions Exam - Constitutional Vitals: Period Temp Pulse Resp BP Sys/Fuchs Pulse Ox Last 24 Hr 96.4 F-98.5 F 71-86 18-22 117-179/70-90 92-99 Discharge Results Procedures and tests throughout hospitalization: Pending Orders 04/22/17 09:41 Blood Culture Routine Labs on day of discharge: Preliminary micro results at discharge 04/22/17 09:41 Blood Culture - Preliminary Blood No growth at 3 days 04/22/17 09:41 Blood Culture - Preliminary Blood No growth at 3 days DS: Provider Date of admission: 04/20/17 16:55 Primary care physician: . No PCP Attending physician on admission: Romero Oneill MD Consults: 04/20/17 23:36 Consult to Physician [CONS] Routine Comment: Findings on CT scan Consulting Provider: Ronny Henao When should Consulting Provider be notified: In am Consult to Specialist Group: Pulmonology When should Consulting Provider be notified: In am 04/21/17 12:04 Consult to Pharmacy [CONS] Routine Reason for Pharmacy Consult: Dose/Manage Vancomycin Discharging clinician: Suleiman Stewart CNP <Serena Downey - Last Filed: 04/25/17 17:07> Hospital Course - Time spent with patient Time with patient DS: Greater than 30 minutes (35) Diagnosis - Discharge Diagnosis (1) Right-sided chest pain Status: Resolved (2) Right lower lobe pneumonia Status: Resolved (3) Hypertension Status: Chronic (4) COPD (chronic obstructive pulmonary disease) Status: Chronic (5) Positive blood culture Status: Resolved (6) EDWARD (acute kidney injury) Status: Resolved Discharge Plan - Discharge Data Condition at Discharge: Stable Discharge Diet: low salt diet Activity: increase activity as tolerated Hygiene: no restrictions Weight Bearing at Discharge: weight bear as tolerated Driving: no restrictions Contact your physician if you experience:: fever over 101, Shortness of breath Exam - Constitutional General appearance: normal weight - Head Head exam: Present: normocephalic, atraumatic - Eye Eye exam: Present: EOMI Pupils: Present: JAY - ENT ENT exam: Present: normal exam - Neck Neck exam: Present: normal inspection - Respiratory Respiratory exam: Present: clear to auscultation bilaterally. Absent: rhonchi, wheezes - Cardiovascular Cardiovascular exam: Present: regular rate and rhythm - GI/Abdominal GI/Abdominal exam: Present: normal bowel sounds, soft. Absent: tenderness, rebound - Extremities Exam Extremities exam: Present: normal inspection - Back Exam Back exam: Present: normal inspection - Neurological Exam Neurological exam: Present: alert, oriented X3 - Psychiatric Psychiatric exam: Present: normal affect, normal mood - Skin Skin exam: Present: warm, intact
[2017-04-25 11:43] VITALS: BP 175/82
--- NOTE | 2017-04-27 20:43 | Order Completion Report ---
See report scanned to EMR
== END 2017-04-25 12:33 | disposition home or self-care (01) | DRG 194 ==
LOC: N.ED 13:50 → N.EDINP 17:56 → SUATTDRO 17:56 → N.2E 18:37
PROVIDERS: ADMIT Internal Medicine; ATTEND Internal Medicine